=== PATIENT | female | born 1980 | race Caucasian/White ===

== ENCOUNTER 2018-12-09 01:29 | Inpatient (IN) | payer MEDICAID ==
[2018-12-09] MEDS ORDERED: XYLOCAINE 2% INFILTRATI ONE ×2 (13:47→15:00)
[2018-12-09] MEDS ORDERED: SUBLIMAZE ONE (13:54)
--- NOTE | 2018-12-09 14:34 | History and Physical Report ---
History of Present Illness Date of examination: 12/09/18 Date of admission: 12/09/18 01:29 Chief complaint: "contractions, leaking fluid, baby delivered in the car en route to the hospital) History of present illness: 38yo G 3 P 3 0 0 3 at 39 weeks 4 days who presented with spontaneous delivery of baby in the car en route to the hospital. She is a [facility] patient who initiated care at 8 weeks gestation. She was seen at the clinic today. SVE /-2. Her course is complicated by AMA, abnormal pap AE-HGB variant, and GDM. Co-managed with APA and IOL was scheduled 12/12/18. Her contractions started at 13:00, then she spontaneously ruptured and the baby spontaneously came out. Labs: O pos, Antibody Screen neg, Pap Smear ASCUS, HPV neg, RI, VDRL NR, HBsAg neg, HIV neg, MSAFP neg, GC/CT neg, GBS neg. Past History Past Medical History: no pertinent history Past Surgical History: no surgical history [employer] History: abnormal PAP smear (ASCUS, HPV neg) Family/Genetic History: none Social history: , lives with family, full code. denies: smoking, alcohol abuse, prescription drug abuse, IV drug use - Obstetrical History Expected Date of Delivery: 12/12/18 Actual Gestation: 39 Week(s) 4 Day(s) : 3 Para: 3 Hx # Term Pregnancies: 0 Number of Pregnancies: 0 Spontaneous Abortions: 0 Induced : 0 Number of Living Children: 3 #1 Infant Gender: Female year: 2,005 (11/25/2006) Birthweight: 3.175 kg ( 7 lbs) Method of Delivery: Vaginal Gestational age at delivery: 40 Complications: none #2 Infant Gender: Male year: 2,007 (04/20/2009) Birthweight: 3.175 kg (7 lbs) Method of Delivery: Vaginal Gestational age at delivery: 40 Complications: none #3 Infant Gender: Female year: 2,019 (12/09/2018) Birthweight: 3.43 kg (7 lbs 9 oz) Method of Delivery: Vaginal Gestational age at delivery: 39.4 Complications: other (home ) Medications and Allergies Allergies Allergy/AdvReac Type Severity Reaction Status Date / Time No Known Allergies Allergy Unverified 12/09/18 14:46 Review of Systems All systems: negative - Vital Signs Vital signs: Vital Signs Pulse BP 96 H 116/68 12/09/18 13:43 12/09/18 13:43 Temp Pulse Resp BP Pulse Ox 105 H 116/62 12/09/18 14:08 12/09/18 14:08 Results All other labs normal. Assessment and Plan - Patient Problems (1) 39 weeks gestation of Current Visit: Yes Status: Acute (2) Active labor at term Current Visit: Yes Status: Acute Plan to address problem: Admit to L&D with routine labor orders (3) (normal spontaneous vaginal delivery) Current Visit: Yes Status: Acute
--- NOTE | 2018-12-09 14:38 | Procedure Note ---
OB Delivery Note - Delivery Date of Delivery: 12/09/18 (13:20) Surgeon: DOMENIC ALONZO (CNM) Estimated blood loss: 300cc - Vaginal Delivery presentation: vertex Intrapartum events: meconium Delivery induction: none Delivery monitor: none Route of delivery: (13:20) Delivery placenta: spontaneous (13:30) Delivery cord: nuchal cord (CAN x1, tight (per RN)) Episiotomy: none Delivery laceration: 1st degree (vaginal), 2nd degree (perineal) Delivery repair: vicryl (3-[address]) Anesthesia: local, intravenous Delivery comments: en route to the hospital on 12/09/18 @ 13:20. Per RN thick meconium and tight nuchal cord present. Was reduced upon arrival. No respiratory effort initially present but with stimulation baby was vigorous. Spontaneous delivery of placenta at 13:30. Upon my arrival, moderate lochia present, IV insertion in progress. Fundal massage done and IV Pitocin bolus later initiated. 1st degree vaginal and secondary degree perineal laceration noted and repaired under local anesthesia and IV sedation. Patient tolerated the procedure well with moderate discomfort. Placenta intact; was discarded. Mom and baby in stable condition. - A at 1 minute: 7 at 5 minutes: 9 Gender: Female (3201 gm (7 lbs 9 oz))
[2018-12-09] MEDS ORDERED: SUBLIMAZE IV PRN (14:46)
[2018-12-09] MEDS ORDERED: PITOCin/NS 20 UNIT/1000ML DRIP 20 UNITS/1,000 ML BAG IV SCH (15:00)
[2018-12-09] MEDS ORDERED: LACTATED RINGERS 1,000 ML IV SCH (15:00)
[2018-12-09] MEDS ORDERED: TUCKS PAD TP PRN (15:10)
[2018-12-09] MEDS ORDERED: PHENERGAN PO PRN (15:10)
[2018-12-09] MEDS ORDERED: BENADRYL PO PRN (15:10)
[2018-12-09] MEDS ORDERED: TYLENOL PO PRN (15:10)
[2018-12-09] MEDS ORDERED: ZOFRAN IV PRN (15:10)
[2018-12-09] MEDS ORDERED: DULCOLAX PR PRN (15:10)
[2018-12-09] MEDS ORDERED: MILK OF MAGNESIA PO PRN (15:10)
[2018-12-09] MEDS ORDERED: PHENERGAN PR PRN (15:10)
[2018-12-09] MEDS ORDERED: LANSINOH TP PRN (15:10)
[2018-12-09] MEDS ORDERED: NORCO 5/325 PO PRN (15:10)
[2018-12-09] MEDS ORDERED: DERMOPLAST TP PRN (15:14)
[2018-12-09 15:35] LABS: Hematocrit 38.4 % (30.3-42.9); Hemoglobin 12.9 gm/dl (10.1-14.3); Mean Corpuscular HGB Conc 34 % (30-34); Mean Corpuscular Volume 78 fl (79-97); Platelet Count 287 K/mm3 (140-440); Red Blood Count 4.92 M/mm3 (3.65-5.03); Red Cell Distribution Width 15.6 % (13.2-15.2)
[2018-12-09] MEDS ORDERED: SODIUM CHLORIDE FLUSH SYRINGE 10 ML IV NR (16:00)
[2018-12-09] MEDS: IBUPROFEN PO SCH ×2 (18:15→23:32)
[2018-12-09] MEDS: FEOSOL PO SCH (22:17)
[2018-12-10] MEDS: IBUPROFEN PO SCH ×4 (06:00→20:59)
[2018-12-10 06:42] LABS: Hematocrit 33.7 % (30.3-42.9); Hemoglobin 11.3 gm/dl (10.1-14.3)
[2018-12-10] MEDS: FEOSOL PO SCH ×2 (09:20→22:17)
[2018-12-10] MEDS: PRENATAL VITAMIN PO SCH (09:20)
--- NOTE | 2018-12-10 12:06 | Progress Note ---
Assessment and Plan A: day 1 S/P spontaneous vaginal delivery. P: Continue current management. Anticipate discharge tomorrow. Subjective - Subjective Date of service: 12/10/18 Principal diagnosis: day 1 S/P precipitous Interval history: day 1 S/P precipitous spontaneous vaginal delivery. Doing well. Patient reports small amount of lochia. She is voiding without difficulty and tolerating a regular diet. Bottlefeeding. Patient denies any problems or symptoms today. Patient reports: appetite normal, voiding normally, pain well controlled, flatus, ambulating normally, no dizzy ambulation, no nauseated [place]: doing well Objective - Vital Signs Latest vital signs: Vital Signs Temp Pulse Resp BP BP Pulse Ox 12/10/18 07:46 98.4 F 87 18 113/78 95 12/10/18 00:00 98.2 F 70 18 105/63 12/09/18 23:32 18 12/09/18 20:05 98.1 F 82 18 112/75 12/09/18 16:45 99.1 F 71 18 105/63 12/09/18 15:38 87 102/65 12/09/18 15:23 134 H 98/65 12/09/18 15:08 84 108/59 12/09/18 14:53 85 109/61 12/09/18 14:48 98 F 89 18 111/58 12/09/18 14:39 89 111/58 12/09/18 14:08 105 H 116/62 12/09/18 13:53 110 H 127/65 12/09/18 13:43 96 H 116/68 Intake and Output 12/09/18 12/10/18 12/10/18 23:59 07:59 15:59 Intake Total 360 Output Total 700 Balance -340 Intake: Oral 240 Intake, Free Water 120 Output: Urine 700 Void 700 Other: Total, Intake Amount 240 Total, Output Amount 700 # Voids Void 1 - Exam Cardiovascular: Present: Regular rate, Normal S1, Normal S2 Lungs: Present: Clear to auscultation Abdomen: Present: normal appearance, soft. Absent: distention, tenderness, guarding, rigidity Uterus: Present: normal, firm, fundal height below umbilicus. Absent: bogginess, tenderness Extremities: Present: normal. Absent: tenderness, edema - Labs Labs: Abnormal lab results 12/09/18 Range/Units 15:18 WBC 14.9 H (4.5-11.0) K/mm3 MCV 78 L (79-97) fl MCH 26 L (28-32) pg RDW 15.6 H (13.2-15.2) %
[2018-12-11] MEDS: IBUPROFEN PO SCH (06:03)
[2018-12-11 09:16] VITALS: BP 102/68
[2018-12-11] MEDS: PRENATAL VITAMIN PO SCH (09:23)
[2018-12-11] MEDS: FEOSOL PO SCH (09:23)
--- NOTE | 2018-12-11 14:01 | Progress Note ---
Assessment and Plan A: day 2 S/P spontaneous vaginal delivery. P: Discharge patient home today. Discussed with patient in detail discharge instructions and warning signs. Advised patient to avoid intercourse, driving, lifting and heavy housework. Advised patient to follow up at [facility] in 4 weeks for exam. Patient is planning to have BTL at 6 weeks. Patient voiced understanding of all instructions. Subjective - Subjective Date of service: 12/11/18 Principal diagnosis: day 2 S/P precipitous Interval history: day 2 S/P precipitous spontaneous vaginal delivery. Doing well. Patient reports small amount of lochia. She is voiding without difficulty and tolerating a regular diet. Passing gas and ambulating well. Bottlefeeding. Patient denies headache, chest pain, shortness of breath, cough, abdominal pain, leg pain, heavy bleeding, or any other problems. Patient reports: appetite normal, voiding normally, pain well controlled, flatus, ambulating normally, no dizzy ambulation, no nauseated : doing well Objective - Vital Signs Latest vital signs: Vital Signs Temp Pulse Resp BP BP Pulse Ox 12/11/18 08:15 98.6 F 80 16 102/68 96 12/11/18 00:00 98.2 F 79 18 96/56 98 12/10/18 21:21 16 12/10/18 20:21 18 12/10/18 15:36 98.1 F 70 18 99/61 96 Intake and Output 12/10/18 12/11/18 12/11/18 23:59 07:59 15:59 Intake Total 360 480 360 Balance 360 480 360 Intake: Oral 360 480 120 Intake, Free Water 240 Other: Total, Intake Amount 360 240 120 # Voids Void 1 1 1 - Exam Cardiovascular: Present: Regular rate, Normal S1, Normal S2 Lungs: Present: Clear to auscultation Abdomen: Present: normal appearance, soft. Absent: distention, tenderness, guarding, rigidity Uterus: Present: normal, firm, fundal height below umbilicus. Absent: bogginess, tenderness Extremities: Present: normal. Absent: tenderness, edema
--- NOTE | 2018-12-11 14:05 | Discharge Summary ---
Providers - Providers Date of Admission: 12/09/18 01:29 Date of discharge: 12/11/18 Attending physician: SOPHIA JOHNSON MD None Primary care physician: SOPHIA JOHNSON MD Hospitalization Reason for admission: active labor, other (Precipitous in car en route to hospital) Delivery: Laceration: 1st degree, 2nd degree Other procedures: none complications: none Discharge diagnosis: IUP at term delivered baby: female Pertinent studies: Labs Hospital course: Normal hospital course Condition at discharge: Good Disposition: [place]-01 TO HOME OR SELFCARE - Discharge Diagnoses (1) Term delivered Status: Acute Plan - Provider Discharge Summary Activity: routine, no sex for 6 weeks, no heavy lifting 4 weeks, no strenuous exercise Diet: routine Instructions: routine Additional instructions: Call your doctor immediately for: * Fever > 100.5 * Heavy vaginal bleeding ( >1 pad per hour) * Severe persistent headache * Shortness of breath * Reddened, hot, painful area to leg or breast - Follow up plan Follow up: SOPHIA JOHNSON MD [Primary Care Provider] - 01/09/19
== END 2018-12-11 15:00 | disposition home or self-care (01) | DRG 775 ==
LOC: LD 01:29 → OB 17:30
PROVIDERS: ADMIT Obstetrics & Gynecology; ATTEND Obstetrics & Gynecology
PROC: 10E0XZZ Delivery of Products of Conception, External Approach (ICD-10-PCS; principal; 2018-12-09)
PROC: 0KQM0ZZ Repair Perineum Muscle, Open Approach (ICD-10-PCS; 2018-12-09)
DX: O70.1 Second degree perineal laceration during delivery (principal); Z37.0 Single live birth; Z3A.39 39 weeks gestation of pregnancy; O77.0 Labor and delivery complicated by meconium in amniotic fluid
CPT/HCPCS: 36415; 85014; 85018; 85027; 86592; 86850; 86900; 86901; G0378; J3010